=== PATIENT | female | born 1995 | race Hispanic/Latino ===

== ENCOUNTER 2018-07-12 10:39 | Outpatient (CLI) | payer BC ==
--- NOTE | 2018-07-12 12:07 | RAD ---
FRONTAL VIEW ABDOMEN: KUB: INDICATIONS: Ureteral calculus. COMPARISON: No prior comparison available. FINDINGS: There is a staghorn-shaped calculus overlying the right renal shadow. There is a focal density overl wilfrido the expected region of the left renal hilum/proximal left ureter. IMPRESSION: Bilateral renal calculi. POS: TPC
== END 2018-07-12 10:40 | disposition home or self-care (01) ==
LOC: BICRAD 10:39
PROVIDERS: ATTEND Urology
DX: N20.2 Calculus of kidney with calculus of ureter (principal)
CPT/HCPCS: 36415; 74018; 85576

== ENCOUNTER 2018-07-13 11:06 | Day surgery (SDC) | payer BC ==
[2018-07-12 16:45] VITALS: BMI 31.6
[2018-07-13 13:22] LABS: PTT 32.9 SEC (22.9-36.1); Prothrombin Time 13.3 SEC (12.0-14.7)
[2018-07-13 13:41] LABS: BHCG - Serum Negative (NEGATIVE); Pregs Control Background? CLEAR/WHITE (CLR/WHITE); Pregs Control Bar Appear? YES (CONTROL BAR)
--- NOTE | 2018-07-13 14:04 | RAD ---
ABDOMEN 1 VIEW: HISTORY: Preprocedure. COMPARISON: Abdomen radiograph of prior day. FINDINGS: Bilateral renal calculi are present. There is casting of calculi in the right renal collecting syste m. No further migration of the calculi. No ureteral calculus is appreciated. No phleboliths. IMPRESSION: Similar appearance to right staghorn and left renal calculus. POS: TPC
[2018-07-13] MEDS ORDERED: Midazolam HCl 2 mg/2 ml Vial ONE ×2 (14:13→14:15)
[2018-07-13] MEDS ORDERED: Fentanyl 100 MCG/2 ML VIAL ONE (14:13)
[2018-07-13] MEDS ORDERED: HYDROcodone/Acetaminophen 5/325 mg Tablet ONE (17:13)
[2018-07-13] MEDS ORDERED: Lidocaine 1% PF 5 ML VIAL ONE (18:20)
[2018-07-13] MEDS ORDERED: PROPOFOL 200 MG/20 ML VIAL ONE (18:20)
[2018-07-13] MEDS ORDERED: Ondansetron PF 4 MG/2 ML Vial ONE (18:20)
--- NOTE | 2018-07-13 21:50 | OP ---
DATE OF PROCEDURE: 07/13/2018 PREOPERATIVE DIAGNOSIS: Left mid ureteral stone. POSTOPERATIVE DIAGNOSIS: Left mid ureteral stone. PROCEDURE PERFORMED: Left extracorporeal shock wave lithotripsy. ANESTHESIA: General. ESTIMATED BLOOD LOSS: Not recorded. FINDINGS: She had a 6 x 5 mm left mid ureteral stone treated with 2200 shocks with a maximum kV level of 4; it broke up very well. No stent was placed. OPERATIVE TECHNIQUE: After obtaining written and verbal consent from the patient and documenting the fact that we could see her stone easily on KUB and made sure all of preoperative blood work was normal, she came to the operating room. She was placed in the supine position on the treatment table. PlexiPulses were placed on her lower extremities and turned on. She was given a general anesthetic and oral obturator intubation. She was coupled to the lithotripsy unit. The stone was placed in treatment focal point. Shockwave therapy was commenced at a low kV. After couple hundred shocks, a pause was given. The kV was then slowly brought to level 4; a rate of 60 was used throughout the case. Fluoroscopy was used intermittently to document stone fragmentation and reposition as necessary. Stone immediately began to fragment and by 2200 shocks, we saw no further fragments remaining, and the procedure was terminated. Stent was not placed. She, at this point, was awakened, and extubated, and taken by danyelle to recovery room. Job ID: [id number]
== END 2018-07-13 17:39 | disposition home or self-care (01) ==
LOC: EEVIPCON 11:06 → SDC 11:06
PROVIDERS: ATTEND Urology
PROC: 0TF7XZZ Fragmentation in Left Ureter, External Approach (ICD-10-PCS; principal; 2018-07-13)
DX: N20.1 Calculus of ureter (principal); Z79.3 Long term (current) use of hormonal contraceptives
CPT/HCPCS: 36415; 74018; 84703; 85610; 85730; J2001; J2250; J2405; J2704; J3010

== ENCOUNTER 2020-04-19 11:38 | Emergency (ER) | payer BC ==
[2020-04-19 12:14] LABS: #Basophils 0.1 thou/uL (0.0-0.2); #Eosinphils 0.1 thou/uL (0.0-0.7); #Lymphocytes 2.9 thou/uL (1.20-3.40); #Monocytes 0.7 thou/uL (0.11-0.59); #Neutrophils 7.3 thou/uL (1.40-6.50); %Eosinophils 1.3 % (0.0-10.0); %Lymphocytes 25.7 % (21.0-51.0); %Monocytes 6.5 % (0.0-10.0); %Neutrophils 65.5 % (42.0-75.0); Hemoglobin 14.6 g/dL (12.0-16.0); Mean Corpuscular HGB CONC 33.3 g/dL (32.0-36.0); Mean Corpuscular Hemoglobin 29.6 pg (27.0-31.0); Mean Platelet Volume 7.7 fL (7.4-10.4); Platelet Count 282 thou/uL (130-400); RBC Distribution Width 11.5 % (11.5-14.5); Red Blood Cell (RBC) Count 4.94 mill/uL (4.20-5.40); White Blood Cell (WBC) Count 11.1 thou/uL (4.8-10.8)
[2020-04-19 12:27] LABS: Bilirubin Negative (Negative); Blood, Urine Negative (Negative); Clarity Clear (Clear); Glucose, Urine (Dipstick) Normal (Negative); Ketone, Urine Negative (Negative); Leukocyte 250 Leu/uL (Negative); Nitrite Negative (Negative); Pregnancy Test - Urine (BHCG) Negative (Negative); Pregu Control Background? CLEAR/WHITE (CLR/WHITE); Pregu Control Bar Appear? YES (CONTROL BAR); Protein, Urine (Dipstick) Negative (Neg-Trace); Specific Gravity 1.019 (1.002-1.036); Specific Gravity, Urine 1.019 (1.002-1.036); Squamous Epithelial 0-3 HPF (0-3); Urobilinogen Normal mg/dL (Less than 2); WBC/HPF Greater than 50 HPF (0-3); pH, Urine 6.5 (5.0-9.0)
[2020-04-19 12:38] LABS: Bacteria/HPF 1+ HPF (None Seen)
[2020-04-19 12:39] LABS: Calcium Oxalate Crystals 1+ HPF (None Seen)
[2020-04-19 12:41] LABS: ALT (SGPT) 98 U/L (8-55); AST (SGOT) 50 U/L (5-34); Albumin 4.5 g/dL (3.5-5.0); Alkaline Phosphatase 76 U/L (40-110); Anion Gap 14 mmol/L (10-20); BUN (Urea Nitrogen) 16 mg/dL (7.0-18.7); Bilirubin, Total 0.7 mg/dL (0.2-1.2); Calc. Creatinine Clearance 0 mL/min (70-130); Calcium 9.4 mg/dL (7.8-10.44); Carbon Dioxide 23 mmol/L (22-29); Chloride 105 mmol/L (98-107); Estimated GFR-MDRD Greater than 90; Globulin 2.7 g/dL (2.4-3.5); Glucose 103 mg/dL (70-105); Potassium 3.9 mmol/L (3.5-5.1); Protein, Total 7.2 g/dL (6.0-8.3); Sodium 138 mmol/L (136-145)
--- NOTE | 2020-04-19 13:09 | CT ---
CT BRAIN WITHOUT CONTRAST: HISTORY: Syncope FINDINGS: No evidence of acute infarct, hemorrhage, midline shift or abnormal extra-axial fluid collections is seen. The ventricular size is appropriate and the basilar cisterns are patent. The bony calvarium is intact. The visualized paranasal sinuses and mastoid air cells are well aerated. IMPRESSION: No CT evidence of acute intracranial process.
== END 2020-04-19 13:35 | disposition home or self-care (01) ==
LOC: ERS 11:38
DX: R55 Syncope and collapse (principal); R11.0 Nausea; F41.9 Anxiety disorder, unspecified
CPT/HCPCS: 70450; 80053; 81003; 81015; 81025; 85025; 93005; 96360